=== PATIENT | male | born 1975 | race Caucasian/White ===

== ENCOUNTER 2018-09-21 11:52 | Emergency (ER) | payer SELFPAY ==
[~2018-09-21] VITALS: Wt 90.7 kg
[~2018-09-21 11:52] MED LIST: AMOXICILLIN500 MG PO; ANAPROX DS550 MG PO; CATAFLAM50 MG PO; CLEOCIN150 MG PO; CYCLOBENZAPRINE10 MG PO; DAYPRO600 M1 PO; DICLOFENAC POTA50 MG PO; HYDROCODONE BIT1 T11 PO; IBUPROFEN 30 M800 MG PO; MOTRIN800 MG PO; NAPROSYN500 MG PO; NKHM; PREDNISONE50 MG PO; ROBAXIN750 MG PO; VICODIN 5-3001 EACH PO; VICODIN 5/500 505 MG PO; VICODIN 500 MG-1 TAB PO; VISTARIL25 MG PO
[2018-09-21] MEDS ORDERED: NAPROSYN500 MG PO (12:10)
[2018-09-21] MEDS ORDERED: AMOXICILLIN500 M2 PO (12:10)
== END 2018-09-21 12:18 | disposition home or self-care (01) ==
LOC: ED 11:52
DX: K08.89 Other specified disorders of teeth and supporting structures (principal); F17.200 Nicotine dependence, unspecified, uncomplicated; Z79.899 Other long term (current) drug therapy

== ENCOUNTER 2018-10-06 21:00 | Emergency (ER) | payer OTHER ==
[~2018-10-06] VITALS: Ht 180.3 cm; Wt 79.8 kg
[~2018-10-06 21:00] MED LIST changes: +AMOXICILLIN500 M2 PO
[2018-10-06] MEDS ORDERED: MEDROL DOSEPAK4 MG PO ×2 (22:28→22:39)
== END 2018-10-06 22:50 | disposition home or self-care (01) ==
LOC: ED 21:00
DX: M65.831 Other synovitis and tenosynovitis, right forearm (principal); Z79.2 Long term (current) use of antibiotics; Z79.1 Long term (current) use of non-steroidal anti-inflammatories (NSAID); Z79.899 Other long term (current) drug therapy; X50.0XXA Overexertion from strenuous movement or load, initial encounter; Y93.89 Activity, other specified; Y92.89 Other specified places as the place of occurrence of the external cause; Y99.8 Other external cause status

== ENCOUNTER 2020-01-03 23:30 | Emergency (ER) | payer OTHER ==
[~2020-01-03] VITALS: Ht 180.3 cm; Wt 79.8 kg
[~2020-01-03 23:30] MED LIST changes: +MEDROL DOSEPAK4 MG PO
[2020-01-04] MEDS ORDERED: AUGMENTIN 875875 MG PO (02:09)
== END 2020-01-04 02:38 | disposition home or self-care (01) ==
LOC: ED 23:30
DX: K08.89 Other specified disorders of teeth and supporting structures (principal); K02.9 Dental caries, unspecified; Z79.899 Other long term (current) drug therapy